=== PATIENT | female | born 1940 | race Caucasian/White ===

== ENCOUNTER 2016-11-28 05:53 | Emergency (ER) | payer MEDICARE, OTHER ==
[~2016-11-28] VITALS: Ht 162.5 cm; Wt 94.3 kg
[~2016-11-28 05:53] MED LIST: ASPIRIN81 MG PO; CHOLESTIN PO; DARVOCET N 1001 TAB PO; ENALAPRIL PO; KEFLEX500 MG PO; METOPROLOL50 MG PO; REMICADE100 MG IM; SYNTHROID,LEVO88 MCG PO; VICODIN ES 7501 TAB PO
[2016-11-28] MEDS ORDERED: Synthroid,Lev100 MCG PO (06:10)
[2016-11-28] MEDS ORDERED: HYDROCHLOROTH12.5 M3 PO (06:11)
[2016-11-28 06:35] LABS: BASO % 0.2 % (0.0-1.0); EOS # 0.1 10*3/uL (0.0-0.4); EOS % 1.2 % (1.0-4.0); HEMATOCRIT 39.7 % (37.0-47.0); HEMOGLOBIN 13.3 g/dl (12.0-16.0); LYMPH # 3.3 10*3/uL (1.3-4.4); LYMPH % 34.1 % (27.0-41.0); MEAN CELL VOLUME 90.6 fl (81.0-99.0); MEAN CORPUSCULAR HGB 30.4 pg (27.0-31.0); MEAN CORPUSCULAR HGB CONC 33.5 g/dl (33.0-37.0); MEAN PLATELET VOLUME 9.6 fl (9.6-12.3); MONO # 0.6 10*3/uL (0.1-1.0); MONO % 5.7 % (3.0-9.0); NEUT # 5.7 10*3/uL (2.3-7.9); NEUT % 58.6 % (47.0-73.0); PLATELET COUNT AUTOMATED 183 10*3/uL (130-400); RED BLOOD COUNT 4.38 10*6/uL (4.10-5.10); RED CELL DISTRI WIDTH 13.1 % (0-14.5); WHITE BLOOD COUNT 9.8 10*3/uL (4.8-10.8)
[2016-11-28 06:50] LABS: ALBUMIN 3.3 gm/dl (3.1-4.5); CREATININE 1.19 mg/dL (0.55-1.02); POTASSIUM 3.7 mmol/L (3.5-5.1); TOTAL PROTEIN 7.8 gm/dL (6.4-8.2); URIC ACID 10.1 mg/dL (2.6-6.0)
[2016-11-28] MEDS ORDERED: PREDNISONE50 MG PO (06:57)
== END 2016-11-28 07:10 | disposition home or self-care (01) ==
LOC: ED 05:53
PROVIDERS: Student in an Organized Health Care Education/Training Program
DX: M10.9 Gout, unspecified (principal); Z88.1 Allergy status to other antibiotic agents; Z79.82 Long term (current) use of aspirin; Z79.899 Other long term (current) drug therapy

== ENCOUNTER 2019-07-16 13:11 | Emergency (ER) | payer MEDICARE ==
[~2019-07-16] VITALS: Ht 162.5 cm; Wt 94.3 kg
[~2019-07-16 13:11] MED LIST changes: +HYDROCHLOROTH12.5 M3 PO; +PREDNISONE50 MG PO; +Synthroid,Lev100 MCG PO
[2019-07-16] MEDS ORDERED: CEPHALEXIN500 M1 PO (15:22)
== END 2019-07-16 15:24 | disposition home or self-care (01) ==
LOC: ED 13:11
DX: L03.116 Cellulitis of left lower limb (principal); M10.9 Gout, unspecified; Z88.8 Allergy status to other drugs, medicaments and biological substances; Z79.899 Other long term (current) drug therapy; Z79.82 Long term (current) use of aspirin

== ENCOUNTER 2021-10-26 16:51 | Emergency (ER) | payer MEDICARE ==
[~2021-10-26] VITALS: Ht 162.5 cm; Wt 94.3 kg
[~2021-10-26 16:51] MED LIST changes: +CEPHALEXIN500 M1 PO
[2021-10-26 19:39] LABS: BASO % 0.3 % (0.0-1.0); EOS % 0.3 % (1.0-4.0); LYMPH # 3.2 10*3/uL (1.3-4.4); MEAN CELL VOLUME 91.5 fl (81.0-99.0); MEAN CORPUSCULAR HGB 30.5 pg (27.0-31.0); MEAN CORPUSCULAR HGB CONC 33.3 g/dl (33.0-37.0); MEAN PLATELET VOLUME 10.1 fl (9.6-12.3); MONO # 0.7 10*3/uL (0.1-1.0); MONO % 5.4 % (3.0-9.0); NEUT # 9.2 10*3/uL (2.3-7.9); NEUT % 69.6 % (47.0-73.0); PLATELET COUNT AUTOMATED 180 10*3/uL (130-400); RED BLOOD COUNT 4.59 10*6/uL (4.10-5.10); RED CELL DISTRI WIDTH 13.5 % (0-14.5); WHITE BLOOD COUNT 13.2 10*3/uL (4.8-10.8)
[2021-10-26 19:56] LABS: CREATININE 1.2 mg/dL (0.55-1.02); TOTAL PROTEIN 7.3 gm/dL (6.4-8.2)
[2021-10-26] MEDS ORDERED: AMOX-CLAV 875-1 EACH PO (21:47)
[2021-10-26 21:48] LABS: BILIRUBIN Negative (Negative); BLOOD Negative (Negative); CLARITY Clear (Clear); COLOR Yellow (Yellow); GLUCOSE Negative (Negative); KETONE Negative (Negative); LEUKO ESTERASE 1+ (Negative); NITRITE Negative (Negative); PH 6.5 (4.5-8.0); SPECIFIC GRAVITY >= 1.030 (1.001-1.030); UROBILINOGEN 0.2 E.U./dl (0.0-1.0)
[2021-10-26 21:56] LABS: BACTERIA TRACE
== END 2021-10-26 22:05 | disposition home or self-care (01) ==
LOC: ED 16:51
PROVIDERS: Physician Assistant
DX: K50.90 Crohn's disease, unspecified, without complications (principal); Z88.8 Allergy status to other drugs, medicaments and biological substances; Z79.899 Other long term (current) drug therapy; Z79.82 Long term (current) use of aspirin; Z90.710 Acquired absence of both cervix and uterus; Z98.890 Other specified postprocedural states

== ENCOUNTER 2023-05-20 16:29 | Emergency (ER) | payer MEDICARE ==
[~2023-05-20] VITALS: Ht 152.4 cm; Wt 90.7 kg
[~2023-05-20 16:29] MED LIST changes: +AMOX-CLAV 875-1 EACH PO
[2023-05-20] MEDS ORDERED: SODIUM CHLORIDE 0.9% 1,000 ML IV ONE (16:55)
[2023-05-20] MEDS ORDERED: methylPREDNISolone sod succ 125 MG VIAL IV ONE (16:55)
[2023-05-20] MEDS ORDERED: Ondansetron Hydrochloride 4 MG/2 ML VIAL IV ONE (17:00)
[2023-05-20] MEDS ORDERED: MORPHINE Sulfate 2 MG/ML SYR IV ONE (17:00)
[2023-05-20 17:16] LABS: BASO % 0.4 % (0.0-1.0); EOS # 0.2 10*3/uL (0.0-0.4); HEMATOCRIT 41.7 % (37.0-47.0); LYMPH # 2.8 10*3/uL (1.3-4.4); LYMPH % 28.8 % (27.0-41.0); MEAN CELL VOLUME 93.1 fl (81.0-99.0); MEAN CORPUSCULAR HGB 30.1 pg (27.0-31.0); MEAN CORPUSCULAR HGB CONC 32.4 g/dl (33.0-37.0); MEAN PLATELET VOLUME 10.1 fl (9.6-12.3); MONO # 0.6 10*3/uL (0.1-1.0); MONO % 6.2 % (3.0-9.0); NEUT # 6.1 10*3/uL (2.3-7.9); NEUT % 62.4 % (47.0-73.0); PLATELET COUNT AUTOMATED 206 10*3/uL (130-400); RED BLOOD COUNT 4.48 10*6/uL (4.10-5.10); RED CELL DISTRI WIDTH 13.9 % (0-14.5); WHITE BLOOD COUNT 9.7 10*3/uL (4.8-10.8)
[2023-05-20 17:37] LABS: POTASSIUM 3.8 mmol/L (3.4-5.1); TOTAL PROTEIN 7.1 gm/dL (6.0-8.0)
[2023-05-20] MEDS ORDERED: IOHEXOL 300 MG/ML 100 ML VIAL IV ONE (18:05)
[2023-05-20] MEDS ORDERED: PREDNISONE10 MG PO (18:46)
[2023-05-20] MEDS ORDERED: COLACE 2-IN-11 EACH PO (18:46)
[2023-05-20] MEDS ORDERED: HYDROCODONE-AC1 EAC1 PO (18:46)
== END 2023-05-20 19:22 | disposition home or self-care (01) ==
LOC: ED 16:29
PROVIDERS: Emergency Medicine
DX: K50.90 Crohn's disease, unspecified, without complications (principal); Z88.2 Allergy status to sulfonamides; Z88.1 Allergy status to other antibiotic agents; Z79.2 Long term (current) use of antibiotics; Z79.899 Other long term (current) drug therapy; Z79.82 Long term (current) use of aspirin; Z90.711 Acquired absence of uterus with remaining cervical stump; Z98.890 Other specified postprocedural states

== ENCOUNTER → 2023-08-07 | Outpatient (CLI) | payer MEDICARE ==
[~2023-08-07] MED LIST changes: +COLACE 2-IN-11 EACH PO; +HYDROCODONE-AC1 EAC1 PO; +PREDNISONE10 MG PO
== END | disposition home or self-care (01) ==
LOC: RAD 10:08
PROVIDERS: ATTEND Orthopaedic Surgery
DX: M79.642 Pain in left hand (principal)

== ENCOUNTER → 2023-09-18 | Outpatient (CLI) | payer MEDICARE | END | disposition home or self-care (01) | LOC: ORTHO 02:06 | PROVIDERS: ATTEND Orthopaedic Surgery | DX: M19.012 Primary osteoarthritis, left shoulder (principal) ==

== ENCOUNTER → 2024-01-17 | Day surgery (SDC) | payer MEDICARE ==
[~2024-01-17] VITALS: Ht 163.8 cm; Wt 87.1 kg
[~2024-01-17] MED LIST changes: +ALLOPURINOL300 MG PO; +ANTIFUNGAL113 GM T; +Balanced Salt Solution 500 ML OPH SCH; +COLCHICINE0.6 M1 PO; +Cefuroxime Sodium 5 MG in BALANCED SALT IRRIG SOLN NO.2 0.5 ML,SYRINGE, DISPOSABLE, 10 ... IO SCH; +METHOCARBAMOL500 M1 PO; +Midazolam Hydrochloride 2 MG/2 ML VIAL IV ONE; +OFLOXACIN 0.3% 5 ML BOTTLE ONE; +OFLOXACIN 0.3% 5 ML BOTTLE OPH SCH; +PHENYLEPHRINE/KETOROLAC 4 ML in Balanced Salt Solution 500 ML OPH SCH; +POVIDONE IODINE 5% OPHTHALMIC 30 ML BOTTLE OPH ONE; +POVIDONE IODINE 5% OPHTHALMIC 30 ML BOTTLE OPH SCH; +Phenylephrine Hydrochloride 2 ML BOT OPH ONE; +Phenylephrine Hydrochloride 2 ML BOT OPH SCH; +Proparacaine Hydrochloride 15 ML BOT OPH ONE; +Proparacaine Hydrochloride 15 ML BOT OPH SCH; +REMICADE100 MG IV; +SODIUM CHLORIDE 0.9% 1,000 ML IV SCH; +TETRACAINE HCL 10 DROP BOT OPH SCH; +TROPICAMIDE 3 ML BOT OPH ONE; +TROPICAMIDE 3 ML BOT OPH SCH; +Tetracaine Hydrochloride 0.5% 4 ML BOT OPH ONE; +Tetracaine Hydrochloride 0.5% 4 ML BOT OPH SCH; +prednisoLONE acetate 1% OPHTHALMIC 5 ML BOT OPH ONE; +prednisoLONE acetate 1% OPHTHALMIC 5 ML BOT OPH SCH
[2024-01-17 07:20] VITALS: BP 132/82
[2024-01-17 08:55] VITALS: BP 138/91
[2024-01-17 09:10] VITALS: BP 144/68
[2024-01-17 09:22] VITALS: BP 132/63
== END | disposition home or self-care (01) ==
LOC: SDC 01-12 08:45
PROVIDERS: ATTEND Ophthalmology
DX: E11.36 Type 2 diabetes mellitus with diabetic cataract (principal); H25.12 Age-related nuclear cataract, left eye; I10 Essential (primary) hypertension; F10.90 Alcohol use, unspecified, uncomplicated; Z95.0 Presence of cardiac pacemaker; Z87.891 Personal history of nicotine dependence; Z88.2 Allergy status to sulfonamides; Z98.890 Other specified postprocedural states; Z79.890 Hormone replacement therapy; Z79.82 Long term (current) use of aspirin; Z79.899 Other long term (current) drug therapy

== ENCOUNTER → 2024-03-20 | Day surgery (SDC) | payer MEDICARE ==
[~2024-03-20] VITALS: Ht 162.5 cm; Wt 87.1 kg
[~2024-03-20] MED LIST changes: -TETRACAINE HCL 10 DROP BOT OPH SCH
[2024-03-20 10:04] VITALS: BP 131/60
[2024-03-20 11:32] VITALS: BP 139/54
[2024-03-20 11:59] VITALS: BP 127/74
== END | disposition home or self-care (01) ==
LOC: SDC 03-18 09:30
PROVIDERS: ATTEND Ophthalmology
DX: E11.36 Type 2 diabetes mellitus with diabetic cataract (principal); H25.11 Age-related nuclear cataract, right eye; I10 Essential (primary) hypertension; E78.00 Pure hypercholesterolemia, unspecified; E03.9 Hypothyroidism, unspecified; F10.90 Alcohol use, unspecified, uncomplicated; Z95.0 Presence of cardiac pacemaker; Z87.891 Personal history of nicotine dependence; Z90.710 Acquired absence of both cervix and uterus; Z98.890 Other specified postprocedural states; Z79.82 Long term (current) use of aspirin; Z79.890 Hormone replacement therapy; Z79.899 Other long term (current) drug therapy; Z88.2 Allergy status to sulfonamides; Z88.8 Allergy status to other drugs, medicaments and biological substances